=== PATIENT | male | born 1970 | race Caucasian/White ===

== ENCOUNTER 2016-12-14 09:01 | Emergency (ER) | payer OTHER ==
[2016-12-14 10:45] VITALS: BP 128/73
--- NOTE | 2016-12-14 11:24 | UC ---
Respiratory Complaint HPI - HPI Summary HPI Summary: 46 yo male with cough x 4 days started out as a URI now down in chest hx copd hx bronchitis cough productive - History of Current Complaint Chief Complaint: UCGeneralIllness Stated Complaint: HEAD/CHEST CONGESTION Time Seen by Provider: 12/14/16 11:11 Hx Obtained From: Patient Onset/Duration: Gradual Onset, Lasting Days Timing: Constant Severity Initially: Mild Severity Currently: Moderate Pain Intensity: 1 Pain Scale Used: 0-10 Numeric Character: Cough: Productive - yellowish Aggravating Factors: Recumbent Position Alleviating Factors: Nothing Associated Signs And Symptoms: Positive: Nasal Congestion. Negative: Dyspnea, Fever, Chills, Pleuritic Chest Pain, Wheezing, Hemoptysis, Dizziness, Calf Pain , Calf Swelling, Edema, URI Related History: Similar Episode/Dx as: - bronchitis - Allergies/Home Medications Allergies/Adverse Reactions: Allergies Allergy/AdvReac Type Severity Reaction Status Date / Time Lorazepam [From Ativan] Allergy Mild Agitation Verified 12/14/16 10:25 Home Medications: Home Medications Albuterol HFA INHALER* [Ventolin HFA Inhaler*] 2 puff INH Q4H PRN 12/14/16 [ History Confirmed 12/14/16] Beclomethasone Dipropionate [Qvar] 40 mcg IN BID 12/14/16 [History Confirmed ] Ibuprofen TAB* [Advil TAB*] 400 mg PO Q6H PRN 12/14/16 [History Confirmed ] PMH/Surg Hx/FS Hx/Imm Hx Previously Healthy: Yes Endocrine History Of: Reports: Diabetes - BEING TX'D FOR BORDERLINE DM Cardiovascular History Of: Reports: Cardiac Disorders - OCCASSIONAL FLUTTER Denies: Hypertension, Pacemaker/ICD Respiratory History Of: Reports: COPD, Asthma - Surgical History Surgical History: Yes Surgery Procedure, Year, and Place: heart ablation 2005 - Family History Known Family History: Positive: Hypertension - MOTHER, Other - [place] - Social History Alcohol Use: Rare Substance Use Type: None Smoking Status (MU): Former Smoker Type: Cigarettes When Did the Patient Quit Smoking/Using Tobacco: 6 months ago Review of Systems Constitutional: Negative Skin: Negative Eyes: Negative ENT: Negative Respiratory: Cough Cardiovascular: Negative Gastrointestinal: Negative Genitourinary: Negative Motor: Negative Neurovascular: Negative Musculoskeletal: Negative Neurological: Negative Psychological: Negative All Other Systems Reviewed And Are Negative: Yes Physical Exam Triage Information Reviewed: Yes Appearance: No Pain Distress, Well-Nourished Vital Signs: Initial Vital Signs Temp 97.3 F 12/14/16 10:17 Pulse 61 12/14/16 10:17 Resp 12 12/14/16 10:17 BP 128/73 12/14/16 10:17 Pulse Ox 98 12/14/16 10:17 Vital Signs Reviewed: Yes Eyes: Positive: Conjunctiva Clear ENT: Negative: Hearing grossly normal, Nasal congestion, Nasal drainage, Trismus , Muffled/hoarse voice Neck: Positive: Supple, Nontender Respiratory: Positive: Lungs clear, Normal breath sounds, No respiratory distress, No accessory muscle use, Wheezing - with forced expiration only Cardiovascular: Positive: RRR, No Murmur, Pulses Normal Musculoskeletal: Positive: Strength Intact, ROM Intact, No Edema Neurological: Positive: Alert UC Diagnostic Evaluation - Laboratory O2 Sat by Pulse Oximetry: 98 - normal/not hypoxic Respiratory Course/Dx - Differential Dx/Diagnosis Provider Diagnoses: acute bronchitis Discharge - Discharge Plan Condition: Stable Disposition: HOME Prescriptions: Amoxicillin (*) [Amoxicillin 875 MG (*)] 875 mg PO BID #20 tab Patient Education Materials: Acute Bronchitis (ED) Referrals: Bryson Jerry MD [Primary Care Provider] - 4 Days (if not better) Additional Instructions: recheck for new or worsening symptoms plain robitussing or mucinex
== END 2016-12-14 11:24 | disposition home or self-care (01) ==
LOC: UCCORT 09:01
DX: J20.9 Acute bronchitis, unspecified (principal); R73.03 Prediabetes; J44.9 Chronic obstructive pulmonary disease, unspecified; J45.909 Unspecified asthma, uncomplicated; Z87.891 Personal history of nicotine dependence
CPT/HCPCS: 99212; G0463